=== PATIENT | female | born 1980 ===

== ENCOUNTER → 2021-04-30 09:23 | Outpatient (CLI) | payer OTHER, SELFPAY ==
[2021-04-30 11:11] LABS: COVID19 - ADMIT (NP swab/PCR) Negative (Negative)
== END ==
PROVIDERS: Referring Provider Physician Assistant; Visit Provider Physician Assistant
DX: Z20.822 Contact with and (suspected) exposure to COVID-19 (principal)
CPT/HCPCS: U0003